=== PATIENT | male | born 1955 | race Caucasian/White ===

== ENCOUNTER → 2016-11-29 | Outpatient (CLI) | payer BC ==
--- NOTE | 2016-11-30 07:28 | XR ---
EXAMINATION TYPE: XR knee complete LT DATE OF EXAM: 11/29/2016 1:57 PM CLINICAL HISTORY: pain TECHNIQUE: Three views of the left knee are obtained. COMPARISON: None. FINDINGS: There is no acute fracture/dislocation. The tri-compartment joint spaces appear within no rmal limits. The overlying soft tissue appears unremarkable. IMPRESSION: There is no acute fracture or dislocation ICD 10 NO FRACTURE, INITIAL EVALUATION
== END | disposition home or self-care (01) ==
LOC: RADXRYALE 09:51
PROVIDERS: ATTEND Family Medicine
DX: M25.562 Pain in left knee (principal)

== ENCOUNTER 2021-08-04 11:25 | Emergency (ER) | payer BC, MEDICARE ==
[2021-08-04 11:30] VITALS: RESP 18; TEMP 98.8
[2021-08-04 12:58] LABS: Basophils # (A) 0.1 k/uL (0-0.2); Basophils % (A) 1 %; Eosinophils # (A) 0.2 k/uL (0-0.7); Eosinophils % (A) 2 %; HCT 44.6 % (39.0-53.0); HGB 14.8 gm/dL (13.0-17.5); Lymphocytes # (A) 1.9 k/uL (1.0-4.8); Lymphocytes % (A) 20 %; MCH 30.3 pg (25.0-35.0); MCHC 33.2 g/dL (31.0-37.0); MCV 91.2 fL (80.0-100.0); Monocytes # (A) 0.6 k/uL (0-1.0); Monocytes % (A) 6 %; Neutrophils # (A) 6.5 k/uL (1.3-7.7); Neutrophils % (A) 70 %; Platelet Count 246 k/uL (150-450); RBC 4.89 m/uL (4.30-5.90); RDW 13.1 % (11.5-15.5); WBC 9.3 k/uL (3.8-10.6)
[2021-08-04 13:17] LABS: ALT 10 U/L (4-49); AST 18 U/L (17-59); African American GFR (CKD) >90 (>60 ml/min/1.73 sqM); Albumin 4.1 g/dL (3.5-5.0); Alkaline Phosphatase 63 U/L (38-126); Anion Gap 9 mmol/L; Blood Urea Nitrogen 19 mg/dL (9-20); C Reactive Protein <0.5 mg/dL (<1.0); Calcium 9.2 mg/dL (8.4-10.2); Carbon Dioxide 23 mmol/L (22-30); Chloride 104 mmol/L (98-107); Glucose 115 mg/dL (74-99); Non-African American GFR(CKD) >90 (>60 ml/min/1.73 sqM); Potassium 4.6 mmol/L (3.5-5.1); Sodium 136 mmol/L (137-145); Total Bilirubin 0.5 mg/dL (0.2-1.3); Total Protein 7.2 g/dL (6.3-8.2)
--- NOTE | 2021-08-04 13:25 | XR ---
EXAMINATION TYPE: XR toes LT DATE OF EXAM: 08/04/2021 COMPARISON: NONE HISTORY: 66-year-old male with pain, swelling, possible infection of the fifth toe. TECHNIQUE: 3 views coned-down left fifth toe FINDINGS: There is mild soft tissue swelling of the fifth toe. No retained radiopaque foreign body or soft tiss ue air. No discrete osseous erosions. IMPRESSION: Mild soft tissue swelling of the fifth toe could represent cellulitis. No radiographic evidence for o steomyelitis at this time.
[2021-08-04 13:49] LABS: Erythrocyte Sedimentation Rate 15 mm/hr (0-15)
--- NOTE | 2021-08-04 14:01 | ED ---
Lower Extremity Injury HPI - General Chief Complaint: Extremity Injury, Lower Stated Complaint: Lt Foot Infection Time Seen by Provider: 08/04/21 12:08 Source: patient, RN notes reviewed Mode of arrival: ambulatory Limitations: no limitations - History of Present Illness Initial Comments: Patient is a 66-year-old male with history of diabetes, presenting to the emergency department with concerns for possible infection of his left little toe. The patient states started having discomfort in his toe last week, went to his PCP the next day who started him on Keflex 3 times daily. He states he been taking this medication for 1 week now, today was 1 week follow-up and his PCP was concerned for possible worsening infection and discoloration of the toes so sent him in the ER for further evaluation. Patient denies history of blood clots. He states he is having some intermittent sharp pains into the toe. He denies any fevers or chills, no nausea or vomiting. Still been eating and drinking as normal. He has no history of A. fib, is not on blood thinners. Patient has no further complaints at this time. His vitals are stable upon arrival. - Related Data Home Medications Medication Instructions Recorded Confirmed Insulin Glargine,Hum.rec.anlog 16 units SQ DAILY 05/03/16 08/04/21 [Lantus Solostar] Pioglitazone HCl 45 mg PO HS 05/03/16 08/04/21 glipiZIDE [Glipizide Xl] 10 mg PO HS 05/03/16 08/04/21 lisinopriL [Zestril] 10 mg PO HS 05/03/16 08/04/21 Cephalexin [Keflex] 500 mg PO TID 08/04/21 08/04/21 Ezetimibe [Zetia] 10 mg PO HS 08/04/21 08/04/21 Previous Rx's Medication Instructions Recorded Cephalexin [Keflex] 500 mg PO Q6HR 3 Days #12 cap 08/04/21 Sulfamethox-Tmp 800-160Mg [Bactrim 1 each PO Q12HR 7 Days #14 tab 08/04/21 Ds] Allergies Allergy/AdvReac Type Severity Reaction Status Date / Time No Known Allergies Allergy Verified 08/04/21 14:00 Review of Systems ROS Statement: Those systems with pertinent positive or pertinent negative responses have been documented in the HPI. ROS Other: All systems not noted in ROS Statement are negative. Past Medical History Past Medical History: Diabetes Mellitus, Hyperlipidemia, Hypertension History of Any Multi-Drug Resistant Organisms: None Reported Past Surgical History: Orthopedic Surgery, Tonsillectomy Additional Past Surgical History / Comment(s): COLONOSCOPY. ORIF RT ANKLE Past Anesthesia/Blood Transfusion Reactions: No Reported Reaction Past Psychological History: No Psychological Hx Reported Smoking Status: Current every day smoker Past Alcohol Use History: None Reported Past Drug Use History: None Reported - Past Family History Mother Family Medical History: No Reported History General Exam - General Exam Comments Initial Comments: GENERAL: Patient is well-developed and well-nourished. Patient is nontoxic and in no acute distress. HEAD: Atraumatic, normocephalic. EYES: Pupils equal round and reactive to light, extraocular movements intact, sclera anicteric, conjunctiva are normal. Eyelids were unremarkable. ENT: Moist mucous membranes. NECK: Normal range of motion, supple without lymphadenopathy or JVD. LUNGS: Unlabored respirations. Breath sounds clear to auscultation bilaterally and equal. No wheezes rales or rhonchi. HEART: Regular rate and rhythm without murmurs, rubs or gallops. ABDOMEN: Soft, nontender, normoactive bowel sounds. No guarding, no rebound. No masses appreciated. : Deferred MUSCULOSKELETAL: Normal extremities with adequate strength and normal range of motion, no pitting or edema. No clubbing or cyanosis. Patient has full range of motion of the left foot and toes. NEUROLOGICAL: Patient is alert and oriented x 3. Motor and sensory are also intact. Cranial nerves II through XII grossly intact. Symmetrical smile. Normal speech, normal gait. PSYCH: Normal mood, normal affect. SKIN: Warm, Dry, normal turgor, no rashes. Patient has some mild swelling noted of the left fifth toe, there is some grayish skin changes. He has normal Refill, dorsal pedis pulse bilaterally is normal. There is some very mild surrounding erythema but no spreading of the erythema into the foot. Limitations: no limitations Course Vital Signs 08/04/21 08/04/21 11:27 14:30 Temperature 98.8 F Pulse Rate 89 76 Respiratory 18 18 Rate Blood Pressure 128/67 121/76 O2 Sat by Pulse 99 98 Oximetry Medical Decision Making - Medical Decision Making Patient is a 66-year-old male with history of diabetes sent in for possible infection of the left little toe. He is on day 7 of Keflex, taken 3 times daily. His doctor sent him in for further evaluation due to secondary skin changes. There is only some very mild erythema around the left fifth digit, there is some grayish tone [place]. He has normal cap refill, normal dorsal pedis pulse. X-rays reveal no signs of osteomyelitis, no fractures. Work is unremarkable including normal white count, normal CRP and ESR. I discussed with patient that we will add on Bactrim to his current antibiotic and extend Keflex for an additional 3 days. Also recommended baby aspirin. He can follow up with his PCP. He is agreeable to this plan of care. Strict return parameters were discussed with them and he verbalized understanding. Case discussed in detail with Dr. Kidd. - Lab Data Result diagrams: 08/04/21 12:42 08/04/21 12:42 Lab Results 08/04/21 08/04/21 Range/Units 12:42 12:42 WBC 9.3 (3.8-10.6) k/uL RBC 4.89 (4.30-5.90) m/uL Hgb 14.8 (13.0-17.5) gm/dL Hct 44.6 (39.0-53.0) % MCV 91.2 (80.0-100.0) fL MCH 30.3 (25.0-35.0) pg MCHC 33.2 (31.0-37.0) g/dL RDW 13.1 (11.5-15.5) % Plt Count 246 (150-450) k/uL MPV 8.0 Neutrophils % 70 % Lymphocytes % 20 % Monocytes % 6 % Eosinophils % 2 % Basophils % 1 % Neutrophils # 6.5 (1.3-7.7) k/uL Lymphocytes # 1.9 (1.0-4.8) k/uL Monocytes # 0.6 (0-1.0) k/uL Eosinophils # 0.2 (0-0.7) k/uL Basophils # 0.1 (0-0.2) k/uL ESR 15 (0-15) mm/hr Sodium 136 L (137-145) mmol/L Potassium 4.6 (3.5-5.1) mmol/L Chloride 104 (98-107) mmol/L Carbon Dioxide 23 (22-30) mmol/L Anion Gap 9 mmol/L BUN 19 (9-20) mg/dL Creatinine 0.66 (0.66-1.25) mg/dL Est GFR (CKD-EPI)AfAm >90 (>60 ml/min/1.73 sqM) Est GFR (CKD-EPI)NonAf >90 (>60 ml/min/1.73 sqM) Glucose 115 H (74-99) mg/dL Calcium 9.2 (8.4-10.2) mg/dL Total Bilirubin 0.5 (0.2-1.3) mg/dL AST 18 (17-59) U/L ALT 10 (4-49) U/L Alkaline Phosphatase 63 (38-126) U/L C-Reactive Protein <0.5 (<1.0) mg/dL Total Protein 7.2 (6.3-8.2) g/dL Albumin 4.1 (3.5-5.0) g/dL Disposition Clinical Impression: Cellulitis of fifth toe, left Disposition: HOME SELF-CARE Condition: Stable Instructions (If sedation given, give patient instructions): Cellulitis (ED) Additional Instructions: Please return to the Emergency Department if symptoms worsen or any other concerns. Take both antibiotics as prescribed. Recommend daily baby aspirin 81 mg. Please follow-up with your primary care on Sunday. Prescriptions: Sulfamethox-Tmp 800-160Mg [Bactrim Ds] 1 each PO Q12HR 7 Days #14 tab Cephalexin [Keflex] 500 mg PO Q6HR 3 Days #12 cap Is patient prescribed a controlled substance at d/c from ED?: No Referrals: Zay Lainez DO [Primary Care Provider] - 1-2 days Time of Disposition: 14:01
[2021-08-04 14:31] VITALS: BP 121/76; PULSE 76
== END 2021-08-04 14:30 | disposition home or self-care (01) ==
LOC: EC 11:25
DX: L03.032 Cellulitis of left toe (principal); E11.9 Type 2 diabetes mellitus without complications; I10 Essential (primary) hypertension; E78.5 Hyperlipidemia, unspecified; F17.200 Nicotine dependence, unspecified, uncomplicated; Z79.4 Long term (current) use of insulin; Z79.899 Other long term (current) drug therapy
CPT/HCPCS: 36415; 80053; 85025; 85652; 86140; 99283

== ENCOUNTER → 2022-04-26 | Outpatient (CLI) | payer MEDICARE ==
--- NOTE | 2022-04-26 14:44 | XR ---
EXAMINATION TYPE: XR abdomen 1V DATE OF EXAM: 04/26/2022 COMPARISON: NONE HISTORY: Pain TECHNIQUE: Single supine KUB image of the abdomen is obtained FINDINGS: Small bowel demonstrates no evidence for dilatation or air fluid levels. Gas and fecal material is seen in non-distended colon. No convincing evidence for pneumoperitoneum. No unusual calcifications. The lung bases are clear. The osseous structures are intact. IMPRESSION: 1. Overall nonobstructive bowel gas pattern.
== END | disposition home or self-care (01) ==
LOC: RADXRYALE 14:03
PROVIDERS: ATTEND Physician Assistant Medical
DX: R10.9 Unspecified abdominal pain (principal)
CPT/HCPCS: 74018